=== PATIENT | female | born 1960 | race African-American/Black ===

== ENCOUNTER 2017-09-06 16:54 | Emergency (ER) | payer MEDICAID ==
[~2017-09-06] VITALS: Ht 170.2 cm; Wt 110.0 kg
[2017-09-06] MEDS ORDERED: AMLO-512 PO (17:00)
[2017-09-06] MEDS ORDERED: D-ME240L18 PO (17:00)
[2017-09-06] MEDS ORDERED: TIOT185 IH (17:00)
[2017-09-06] MEDS ORDERED: HYDROCODONE/ACETAMINOPHEN 5-325 MG TABLET PO ONE (18:00)
[2017-09-06 19:08] LABS: INFLUENZA TYPE B NEGATIVE FOR TYPE B (NEGATIVE)
[2017-09-06 19:09] VITALS: BP 128/86
== END 2017-09-06 20:01 | disposition home or self-care (01) ==
LOC: EMS 16:56
DX: K04.7 Periapical abscess without sinus (principal); K02.9 Dental caries, unspecified; J06.9 Acute upper respiratory infection, unspecified; I25.10 Atherosclerotic heart disease of native coronary artery without angina pectoris; J44.9 Chronic obstructive pulmonary disease, unspecified; I10 Essential (primary) hypertension; F17.210 Nicotine dependence, cigarettes, uncomplicated; Z88.6 Allergy status to analgesic agent
CPT/HCPCS: 87804; 99284